=== PATIENT | female | born 1960 | race Caucasian/White ===

== ENCOUNTER 2025-02-23 14:23 | Outpatient (CLI) | payer OTHER, SELFPAY ==
--- NOTE | 2025-02-23 14:33 | XR_ITS ---
WS: [id number] SCREENING DEXA SCAN [employer] CLINICAL INFORMATION: SCREENING COMPARISON: None. FINDINGS: Lumbar scoliosis. The L1-L4 bone mineral density measures 1.205 g/cm2. This corresponds to a T score score of 0.2 and Z score of 1.7. Left femoral neck bone mineral density measures 0.742 g/cm2. This corresponds to a T score of -2.1 and Z score of -1.0. Right femoral neck bone mineral density measures 0.751 g/cm2. This corresponds to a T score -2.0of and Z score of -0.9. Mean femoral neck bone mineral density measures 0.747 g/cm2. This corresponds to a T score of -2.1 and Z score of -1.0. XR/XR DEXA axial skeleton* [id number] IMPRESSION: Normal bone mineralization lumbar spine. Osteopenia femoral necks. Patient's FRAX calculated 10 year probability for major osteoporotic fracture i s 27.9% and osteoporotic hip fracture is 4.4%.
== END 2025-02-23 14:24 | disposition home or self-care (01) ==
LOC: RAD 14:28
PROVIDERS: PCP Nurse Practitioner; Visit Provider Nurse Practitioner
DX: Z13.820 Encounter for screening for osteoporosis (principal); Z78.0 Asymptomatic menopausal state; M85.89 Other specified disorders of bone density and structure, multiple sites
CPT/HCPCS: 77080

== ENCOUNTER 2025-03-31 12:37 | Outpatient (CLI) | payer OTHER, SELFPAY ==
--- NOTE | 2025-03-31 12:41 | CT_ITS ---
WS: [id number] LDCT LUNG CANCER SCREENING TECHNIQUE: Noncontrast CT of the chest with coronal and sagittal reformatted images. CLINICAL INFORMATION: SCREENING COMPARISON: None. DLP: 45.61 mGy.cm DIvol: Mean CTDIvol: 0.80 (mGy) All CT scans at [facility] use at least one of these dose optimization techniques: automated exposure control; mA and/or kV adjustment per patient size (includes targeted exams where dose is matched to clinical indication); or iterative reconstruction. FINDINGS: Small LEFT perifissural nodule. Small calcified granuloma RIGHT middle lobe. Subsegmental atelectasis in the lung bases. Aortic calcification. Normal caliber thoracic aorta. No mediastinal or hilar lymphadenopathy. Mild coronary calcification. No axillary lymphadenopathy. Small esophageal hiatal hernia. Normal noncontrast pancreas. Adrenal glands are normal. Vascular calcification. Mild thoracic curve. Mild thoracic kyphosis. Small sclerotic focus measuring 5 mm posterior L1 vertebral body likely benign bone island. CT/CT lung screening [id number] IMPRESSION: LUNG-RADS: 2-Benign Appearance or Behavior FOLLOW UP: 12 Month: Continue annual screening with LDCT
== END 2025-03-31 12:38 | disposition home or self-care (01) ==
LOC: RAD 12:37
PROVIDERS: PCP Nurse Practitioner; Visit Provider Nurse Practitioner
DX: Z12.2 Encounter for screening for malignant neoplasm of respiratory organs (principal); Z87.891 Personal history of nicotine dependence; R91.1 Solitary pulmonary nodule; J84.10 Pulmonary fibrosis, unspecified; J98.11 Atelectasis; I25.10 Atherosclerotic heart disease of native coronary artery without angina pectoris; K44.9 Diaphragmatic hernia without obstruction or gangrene; M40.204 Unspecified kyphosis, thoracic region; M89.8X8 Other specified disorders of bone, other site
CPT/HCPCS: 71271